=== PATIENT | female | born 1970 | race African-American/Black ===

== ENCOUNTER 2016-04-27 14:29 | Inpatient (IN) | payer OTHER ==
[2016-04-27 14:37] VITALS: BMI 29.9
[2016-04-27 15:26] LABS: BASOPHIL 0.9 % (0-2.0); EOSINOPHIL 1.6 % (0-4.5); MCHC 32.4 g/dl (32.0-36.0); MEAN CELL VOLUME 86.4 fl (80-96); MEAN PLT VOLUME 8.5 fl (7.5-11.1); NEUTROPHILS 67.3 % (42.8-82.8); PLATELET COUNT 337 K/MM3 (134-434); RDW 13.9 % (11.6-15.6); WHITE BLOOD COUNT 9.3 K/mm3 (4.0-10.0)
[2016-04-27 15:48] LABS: ALBUMIN 3.3 g/dl (3.4-5.0); BILIRUBIN,TOTAL 0.1 mg/dL (0.2-1.0); CALCIUM 8.8 mg/dL (8.5-10.1); TOT PROT 6.4 g/dl (6.4-8.2)
--- NOTE | 2016-04-27 15:59 | PDOC ---
History of Present Illness <Serafin Bucio - Last Filed: 05/02/16 08:58> - General History Source: Patient Exam Limitations: No Limitations - History of Present Illness Travel History: No Initial Comments: 04/27/16 15:54 45-year-old female sent in by her SENIOR MATERIALS SCIENTIST Dr. Grider for admission secondary to heavy vaginal bleeding secondary to fibroids. Patient pending a total hysterectomy tomorrow at 2 PM and had a noted elevated INR on her preop blood work. Case also discussed with framing and hanging Dr. Nuñez who recommends depending on today's labs, to order labs and meds for reversal. Patient currently states mild abdominal cramping with heavy vaginal bleeding with clots. Patient denies headache, dizziness, weakness, nausea, dysuria, or low back. Timing/Duration: reports: constant Quality: reports: mild, cramping Abdominal Pain Onset Location: reports: suprapubic Pain Radiation: reports: no radiation Activities at Onset: reports: none Aggravating Factors: improves with: None Alleviating Factors: improves with: None <Angelique Rodriguez - Last Filed: 05/07/16 11:02> - General Chief Complaint: Vaginal Bleeding Stated Complaint: BLEEDING, WEAK Time Seen by Provider: 04/27/16 14:52 Past History <Serafin Bucio - Last Filed: 05/02/16 08:58> - Past Medical History Anemia: Yes Asthma: No Cancer: No Cardiac Disorders: No CVA: No COPD: No CHF: No Dementia: No Diabetes: No GI Disorders: No Disorders: No HTN: No Hypercholesterolemia: No Liver Disease: No Seizures: No Thyroid Disease: No - Surgical History Abdominal Surgery: No Appendectomy: No Cardiac Surgery: No Cholecystectomy: No Lung Surgery: No Neurologic Surgery: No Orthopedic Surgery: No - Reproductive History Is Patient Now?: No - Immunization History Immunization Up to Date: Yes - Psycho/Social/Smoking Cessation Hx Anxiety: No Suicidal Ideation: No Smoking Status: No Smoking History: Never smoked Number of Cigarettes Smoked Daily: 0 Information on smoking cessation initiated: No Hx Alcohol Use: No Drug/Substance Use Hx: No Substance Use Type: None Hx Substance Use Treatment: No Patient Lives Alone: No Lives with/in: spouse/SO <Angelique Rodriguez - Last Filed: 05/07/16 11:02> - Past Medical History Allergies/Adverse Reactions: Allergies Allergy/AdvReac Type Severity Reaction Status Date / Time No Known Allergies Allergy Verified 04/27/16 14:33 Home Medications: Ambulatory Orders Ferrous Sulfate [Feosol] 325 mg PO TID 04/08/16 Review of Systems - Review of Systems Able to Perform ROS?: Yes Constitutional: No: Symptoms Reported HEENTM: No: Symptoms Reported Respiratory: No: Symptoms reported Cardiac (ROS): No: Symptoms Reported ABD/GI: Yes: Abdominal cramping : Yes: Discharge (vaginal bleeding) Musculoskeletal: No: Symptoms Reported Integumentary: No: Symptoms Reported Neurological: No: Symptoms reported Endocrine: No: Symptoms Reported Hematologic/Lymphatic: No: Symptoms Reported <Angelique Rodriguez - Last Filed: 05/07/16 11:02> *Physical Exam - Vital Signs Last Vital Signs Temp Pulse Resp BP Pulse Ox 98.2 F 96 H 20 129/78 100 04/27/16 14:34 04/27/16 14:34 04/27/16 14:34 04/27/16 14:34 04/27/16 14:34 <Serafin Bucio - Last Filed: 05/02/16 08:58> - Vital Signs Last Vital Signs Temp Pulse Resp BP Pulse Ox 98.2 F 96 H 20 129/78 100 04/27/16 14:34 04/27/16 14:34 04/27/16 14:34 04/27/16 14:34 04/27/16 14:34 - Physical Exam General Appearance: Yes: Nourished, Appropriately Dressed. No: Apparent Distress HEENT: positive: EOMI, MYNOR. negative: Pale Conjunctivae Neck: positive: Supple Respiratory/Chest: positive: Lungs Clear, Normal Breath Sounds. negative: Respiratory Distress, Accessory Muscle Use Cardiovascular: positive: Regular Rhythm, Regular Rate. negative: Murmur Female Pelvic Exam: positive: vaginal bleeding (moderate amount -bright red no clots) Gastrointestinal/Abdominal: positive: Soft, Tenderness (suprapubic mid) Musculoskeletal: negative: CVA Tenderness Extremity: positive: Normal Capillary Refill. negative: Pedal Edema Integumentary: positive: Normal Color, Warm, Moist Neurologic: positive: Motor Strength 5/5 (ambulatory) <Angelique Rodriguez - Last Filed: 05/07/16 11:02> Heart Score/ECG Review - ECG Impressions Comment:: 04/27/16 16:32 Twelve-lead EKG was performed and reviewed by me. There is normal sinus rhythm with a normal rate. Rate of 89 The axis is normal. The intervals are normal. There is normal R wave progression Nonspecific ST wave changes <Serafin Bucio - Last Filed: 05/02/16 08:58> ED Treatment Course - LABORATORY CBC & Chemistry Diagram: 04/30/16 06:25 04/30/16 06:25 - ADDITIONAL ORDERS Additional order review: Laboratory Results 04/27/16 04/27/16 14:53 14:53 Sodium 142 Potassium 4.0 Chloride 106 Carbon Dioxide 28 Anion Gap 8 BUN 12 D Creatinine 1.0 Creat Clearance w eGFR 59.43 Random Glucose 104 D Calcium 8.8 Total Bilirubin 0.1 L AST 17 D ALT 17 Alkaline Phosphatase 50 Total Protein 6.4 Albumin 3.3 L Crossmatch See Detail 04/27/16 14:53 RBC 3.03 L MCV 86.4 MCHC 32.4 RDW 13.9 MPV 8.5 Neutrophils % 67.3 Lymphocytes % 26.0 Monocytes % 4.2 Eosinophils % 1.6 Basophils % 0.9 - RADIOLOGY Radiology Studies Ordered: Category Date Time Status CHEST X-RAY PORTABLE* [RAD] Stat Radiology 04/27/16 14:53 Ordered <Serafin Bucio - Last Filed: 05/02/16 08:58> - LABORATORY CBC & Chemistry Diagram: 04/30/16 06:25 04/30/16 06:25 - ADDITIONAL ORDERS Additional order review: Laboratory Results 04/27/16 04/27/16 04/27/16 14:53 14:53 14:53 WBC 9.3 RBC 3.03 L Hgb 8.5 L D Hct 26.2 L D MCV 86.4 MCHC 32.4 RDW 13.9 Plt Count 337 MPV 8.5 Neutrophils % 67.3 Lymphocytes % 26.0 Monocytes % 4.2 Eosinophils % 1.6 Basophils % 0.9 Sodium 142 Potassium 4.0 Chloride 106 Carbon Dioxide 28 Anion Gap 8 BUN 12 D Creatinine 1.0 Creat Clearance w eGFR 59.43 Random Glucose 104 D Calcium 8.8 Total Bilirubin 0.1 L AST 17 D ALT 17 Alkaline Phosphatase 50 Total Protein 6.4 Albumin 3.3 L Crossmatch See Detail 04/27/16 14:53 RBC 3.03 L MCV 86.4 MCHC 32.4 RDW 13.9 MPV 8.5 Neutrophils % 67.3 Lymphocytes % 26.0 Monocytes % 4.2 Eosinophils % 1.6 Basophils % 0.9 <Angelique Rodriguez - Last Filed: 05/07/16 11:02> Medical Decision Making - Medical Decision Making 05/02/16 08:58 The patient was seen and evaluated in conjunction with BILLY Rodriguez under my direct supervision, ancillary studies were reviewed. I agree with the plan as outlined by BILLY Rodriguez. <Serafin Bucio - Last Filed: 05/02/16 08:58> - Medical Decision Making 04/27/16 16:04 Patient sent in by [employer] for admission and evaluation by framing and hanging secondary to elevated INR and patient is due for a total abdominal history. Tomorrow at 2 PM. Patient history of fibroids but denies any anticoagulation disorders does not take any medication that could cause this. Patient currently stable case discussed with framing and hanging who recommended labs and her labs including PT PTT and fiber 10 level Patient will be placed for admission. [employer] here at bedside. Patient currently comfortable with normal vital signs. 04/27/16 17:40 Chest xray -. awaiting transfusion. Laboratory Tests 04/27/16 04/27/16 04/27/16 14:53 14:53 14:53 WBC 9.3 Hgb 8.5 L D Hct 26.2 L D Neutrophils % 67.3 INR 1.45 H Sodium 142 Potassium 4.0 Chloride 106 Carbon Dioxide 28 Anion Gap 8 BUN 12 D Creatinine 1.0 Total Bilirubin 0.1 L Albumin 3.3 L Serum , Qual Urine Protein Urine Ketones Urine Blood Ur Leukocyte Esterase Urine RBC Blood Type 04/27/16 04/27/16 04/27/16 14:53 15:30 16:54 WBC Hgb Hct Neutrophils % INR 1.46 H Sodium Potassium Chloride Carbon Dioxide Anion Gap BUN Creatinine Total Bilirubin Albumin Serum , Qual Negative Urine Protein 2+ H Urine Ketones Negative Urine Blood 3+ H Ur Leukocyte Esterase 1+ H Urine RBC 2136 Blood Type O POSITIVE Case discussed with Dr. Serafin Raygoza framing and hanging and states to hold on medication until the PTT PT and fibrinogen level is back. 04/27/16 18:46 Call placed by medical claims representative. Laboratory Tests 04/27/16 16:54 PTT (Actin FS) 34.4 Mix INR Baseline 1.13 H PTT Mix w Anti Prot C 35.0 H Fibrinogen 264.0 Factor VII Pending 04/27/16 19:00 Case discussed again with Dr. Raygoza who states to add factor XI factor X, and factor IX to regimen and ordered vitamin K 10 mg subcutaneous. 04/27/16 19:10 Unable to order factor XI the computer stating he needs prior authorization 05/07/16 11:01 <Angelique Rodriguez - Last Filed: 05/07/16 11:02> *DC/Admit/Observation/Transfer <Serafin Bucio - Last Filed: 05/02/16 08:58> - Discharge Dispostion Admit: Yes <Angelique Rodriguez - Last Filed: 05/07/16 11:02> Diagnosis at time of Disposition: Vaginal bleeding, Elevated INR, Blood transfusion during current hospitalization Fibroid Qualifiers: Uterine leiomyoma location: intramural Qualified Code(s): D25.1 - Intramural leiomyoma of uterus - Discharge Dispostion Disposition: HOME Condition at time of disposition: Good
[2016-04-27 16:38] LABS: INR 1.45 (0.82-1.09); PROTHROMBIN TIME (PATIENT) 16.1 SEC (9.98-11.88)
[2016-04-27 16:40] LABS: URINE APPEARANCE SLCLOUDY; URINE BILIRUBIN NEGATIVE (NEGATIVE); URINE COLOR YELLOW; URINE GLUCOSE (UA) NEGATIVE (NEGATIVE); URINE KETONE NEGATIVE (NEGATIVE); URINE NITRITE NEGATIVE (NEGATIVE); URINE UROBILINOGEN NEGATIVE E.U./dl (0.2-1.0)
[2016-04-27 16:41] LABS: URINE BLOOD 3+ (NEGATIVE); URINE LEUK ESTERASE 1+ (NEGATIVE); URINE PROTEIN 2+ (NEGATIVE)
[2016-04-27 16:44] LABS: CALCIUM OXALATE CRYSTALS FEW /hpf (NONE SEEN); URINE BACTERIA FEW /hpf (NONE SEEN); URINE MUCUS FEW; URINE RBC 2136 /hpf (0-3); URINE WBC 17 /hpf (3-5)
[2016-04-27 17:47] LABS: INR 1.46 (0.82-1.09); PROTHROMBIN TIME (PATIENT) 16.2 SEC (9.98-11.88)
[2016-04-27 17:49] LABS: ACTIVATED PTT 34.4 SECONDS (26.9-34.4)
[2016-04-27 18:24] LABS: MIXED PT 12.5 SECONDS (9.4-11.6)
[2016-04-27 18:25] LABS: INR (MIXED) 1.13 (0.80-1.00)
[2016-04-27] MEDS ORDERED: PHYTONADIONE 10 MG/1 ML AMP SQ ONE (19:09)
--- NOTE | 2016-04-27 20:35 | CONSULT ---
Consult Consult Specialty:: Hematology-Oncology Referred by:: Dr. Grider Reason for Consultation:: Elevated INR. Scheduled for hysterectomy - History of Present Illness Chief Complaint: Fibroid uterus, menorrhagia. Had menses beginning 04/24, passing clots and falling Hct requiring transfusion therapy and ER visit. Scheduled for hysterectomy 04/28. - History Source History Provided By: Patient Limitations to Obtaining History: No Limitations - Past Medical History Reproductive: Yes: Other ...LMP: 04/26/15 ...: No ...: 3 ...Para: 2 (1 miscarriage; 2 deliveries via ) - Past Surgical History Additional Surgical History: Tooth extractions in past- No bleeding;. C- section x 2 - No bleeding - Alcohol/Substance Use Hx Alcohol Use: No (social) History of Substance Use: reports: None - Smoking History Smoking history: Never smoked Aproximately how many cigarettes per day: 0 - Social History ADL: Independent Occupation: works in [employer] of : [employer] Home Medications - Allergies Allergies/Adverse Reactions: Allergies Allergy/AdvReac Type Severity Reaction Status Date / Time No Known Allergies Allergy Verified 04/27/16 14:33 - Home Medications Home Medications: Ambulatory Orders Cyanocobalamin [Vitamin B12 -] 1,000 mcg PO DAILY 04/08/16 Ferrous Sulfate [Feosol] 325 mg PO TID 04/08/16 Folic Acid 1 mg PO DAILY 04/08/16 Family Disease History - Family Disease History Family History: Unable to Obtain (adopted) Review of Systems - Review of Systems Constitutional: reports: Weakness Eyes: denies: Blind Spots, Blurred Vision, Double Vision HENT: denies: Epistaxis, Hearing Loss, Throat Pain Neck: denies: Decreased ROM, Stiffness Cardiovascular: denies: Chest Pain Respiratory: denies: Exercise Intolerance, SOB, SOB on Exertion Gastrointestinal: denies: Abdominal Pain, Nausea, Vomiting, Vomiting Blood Genitourinary: reports: Menses, Other (fibroids- passing clots -1 miscarriage) Breasts: reports: No Symptoms Reported, Other (had mammography > 1 year earlier) Musculoskeletal: reports: No Symptoms Integumentary: reports: No Symptoms Neurological: reports: No Symptoms Endocrine: reports: No Symptoms Hematology/Lymphatic: reports: Excessive Bleeding Psychiatric: reports: No Symptoms Physical Exam Vital Signs: Vital Signs Temperature 98.2 F 04/27/16 14:34 Pulse Rate 107 H 04/27/16 19:36 Respiratory Rate 16 04/27/16 19:36 Blood Pressure 147/79 04/27/16 19:36 O2 Sat by Pulse Oximetry (%) 99 04/27/16 19:36 Constitutional: Yes: Mild Distress Eyes: Yes: PERRL. No: Diplopia, Ptosis, Sclera Icterus HENT: No: Epistaxis, Hoarseness, Tonsillar Exudate Neck: No: Lymphadenopathy, Tenderness, Thyromegaly Cardiovascular: Yes: Regular Rate and Rhythm Respiratory: Yes: WNL, Regular Gastrointestinal: Yes: Normal Bowel Sounds, Soft. No: Hepatomegaly, Splenomegaly Renal/: No: CVA Tenderness - Left, CVA Tenderness - Right Breast(s): Yes: WNL, Left, Right Musculoskeletal: Yes: WNL Extremities: Yes: WNL Edema: No Integumentary: Yes: WNL Neurological: Yes: WNL ...Motor Strength: WNL Psychiatric: Yes: WNL Problem List - Problems (1) Elevated INR Assessment/Plan: INR-1.45, PTT-34 Mixing PT with correction - against a circulating anticoagulant Mixing PTT- no correction --favors circulating anticoagulant Factor studies pending Will order lupus anticoagulant Had x2 and tooth extractions without prior bleeding diathesis. Family hx- not helpful as patient is adopted. Spoke with Dr. Grider. Etiology of elevated INR not apparent. Dr. Grider feels surgery is necessary, will empirically give Vitamin K. Will reassess in A. M. Code(s): R79.1 - ABNORMAL COAGULATION PROFILE
[2016-04-27] MEDS ORDERED: PHYTONADIONE 10 MG/1 ML AMP ONE (20:46)
[2016-04-28 07:19] LABS: INR 1.36 (0.82-1.09)
[2016-04-28 07:22] LABS: ACTIVATED PTT 34.7 SECONDS (26.9-34.4)
[2016-04-28 07:39] LABS: ALK PHOS 46 U/L (45-117); ANION GAP 5 (8-16); BILIRUBIN,TOTAL 0.2 mg/dL (0.2-1.0); CALCIUM 8.2 mg/dL (8.5-10.1); CO2 29 mmol/L (21-32); CREATININE 0.9 mg/dL (0.55-1.02); GLUCOSE,RANDOM 91 mg/dL (74-106); SGOT/AST 15 U/L (15-37); SGPT/ALT 15 U/L (12-78); TOT PROT 5.9 g/dl (6.4-8.2)
[2016-04-28 11:08] LABS: BASOPHIL 0.7 % (0-2.0); MCH 28.4 pg (25.7-33.7); MCHC 32.1 g/dl (32.0-36.0); MEAN CELL VOLUME 88.6 fl (80-96); MEAN PLT VOLUME 9.3 fl (7.5-11.1); NEUTROPHILS 62.1 % (42.8-82.8); PLATELET COUNT 295 K/MM3 (134-434); RDW 13.6 % (11.6-15.6); WHITE BLOOD COUNT 6.1 K/mm3 (4.0-10.0)
--- NOTE | 2016-04-28 11:57 | EKG ---
Test Reason : Blood Pressure : / mmHG Vent. Rate : 089 BPM Atrial Rate : 089 BPM P-R Int : 146 ms QRS Dur : 082 ms QT Int : 376 ms P-R-T Axes : 061 021 014 degrees QTc Int : 457 ms NORMAL SINUS RHYTHM NONSPECIFIC T WAVE ABNORMALITY ABNORMAL ECG WHEN COMPARED WITH ECG OF 30-MAR-2016 10:58, NO SIGNIFICANT CHANGE WAS FOUND Confirmed by KRISTI WELLS, SAMMI ([id number]) on 04/28/2016 11:57:21 AM Referred By: Confirmed By:SAMMI BERRY MD
[2016-04-28] MEDS ORDERED: ceFAZolin SODIUM 1 GM VIAL IVPB ONE (13:27)
[2016-04-28] MEDS ORDERED: DEXAMETHASONE SOD PHOSPHATE 4 MG/1 ML VIAL IVPUSH ONE ×2 (13:36→17:03)
[2016-04-28] MEDS ORDERED: ONDANSETRON 4 MG/2 ML VIAL IVPUSH PRN ×5 (13:36→17:03)
[2016-04-28] MEDS ORDERED: PROMETHAZINE HCL 25 MG/1 ML VIAL IVPB PRN ×3 (13:36→17:03)
[2016-04-28] MEDS ORDERED: LACTATED RINGERS SOLUTION 1,000 ML IV SCH ×3 (13:45→16:15)
[2016-04-28] MEDS ORDERED: HYDROmorphone *PCA* 10MG/50ML DISP.SYRIN PCA SCH ×3 (13:45→17:03)
[2016-04-28] MEDS ORDERED: DEXAMETHASONE SOD PHOSPHATE 4 MG/1 ML VIAL IVPUSH PRN ×2 (15:54→17:03)
[2016-04-28] MEDS ORDERED: PROMETHAZINE HCL 25 MG/1 ML VIAL IVPUSH PRN ×2 (15:54→17:03)
[2016-04-28] MEDS ORDERED: PROMETHAZINE HCL 25 MG/1 ML VIAL ONE (16:23)
[2016-04-28] MEDS ORDERED: PHYTONADIONE 10 MG/1 ML AMP SQ ONE (16:47)
[2016-04-28 18:24] LABS: BASOPHIL 0.2 % (0-2.0); MCH 28.1 pg (25.7-33.7); MEAN CELL VOLUME 87.6 fl (80-96); MEAN PLT VOLUME 9.2 fl (7.5-11.1); NEUTROPHILS 93.7 % (42.8-82.8); PLATELET COUNT 306 K/MM3 (134-434); RDW 13.6 % (11.6-15.6); WHITE BLOOD COUNT 16.9 K/mm3 (4.0-10.0)
[2016-04-28] MEDS: LACTATED RINGERS SOLUTION 1,000 ML IV SCH (18:30)
--- NOTE | 2016-04-28 18:51 | PN ---
Progress Note (short form) - Note Progress Note: PAtient seen and examined in the recovery room Vitals stable. Arousabe. received 1 unit PRBCs in the OR Last Vital Signs Temp Pulse Resp BP Pulse Ox 98.9 F 92 H 16 125/70 100 04/28/16 15:49 04/28/16 17:50 04/28/16 17:50 04/28/16 17:50 04/28/16 17:50 HEENT: JADEN, EOM Intact Oropharynx: No thrush, No mucositis Cor: RSR, No murmurs, No gallops Lungs: Clear to P&A Abd: Soft, Normal bowel sounds, No organomegaly Ext:No significant edema Skin: No rashes, Integument intact Abnormal Lab Results 04/27/16 04/28/16 04/28/16 14:53 06:30 06:30 RBC 3.25 L Hgb 9.2 L Hct 28.7 L INR 1.36 H PTT (Actin FS) 34.7 H Anion Gap Calcium Total Protein Albumin Crossmatch See Detail Crossmatch IS Only See Detail 04/28/16 06:30 RBC Hgb Hct INR PTT (Actin FS) Anion Gap 5 L Calcium 8.2 L Total Protein 5.9 L Albumin 3.0 L Crossmatch Crossmatch IS Only Current Medications Dexamethasone Sodium Phosphate (Decadron Injection -) 4 mg IVPUSH ONCE PRN PRN Reason: NAUSEA AND/OR VOMITING Diphenhydramine HCl (Benadryl Injection -) 12.5 mg IVPUSH ONCE PRN PRN Reason: FOR ITCHING Fentanyl (Sublimaze Injection -) 50 mcg IVPUSH [id number] PRN PRN Reason: PAIN Stop: 05/01/16 13:37 Fentanyl (Sublimaze Injection -) 50 mcg IVPUSH [id number] PRN PRN Reason: PAIN Stop: 05/01/16 15:55 Hydromorphone HCl (Dilaudid Esthetician Facialist -) 0 mg HOUSEKEEPER AND LAUNDRY ASSISTANT HOUSEKEEPER AND LAUNDRY ASSISTANT KATHERINE PRN Reason: Protocol Stop: 05/05/16 15:54 Last Admin: 04/28/16 16:15 Dose: 10 mg Lactated Ringer's (Lactated Ringers Solution) 1,000 mls @ 125 mls/hr IV ASDIR KATHERINE Ondansetron HCl (Zofran Injection) 4 mg IVPUSH Q4H PRN PRN Reason: NAUSEA AND/OR VOMITING Stop: 04/29/16 01:37 Ondansetron HCl (Zofran Injection) 4 mg IVPUSH Q6H PRN PRN Reason: NAUSEA AND/OR VOMITING Stop: 04/28/16 21:55 Promethazine HCl (Phenergan Injection -) 12.5 mg IVPUSH Q6H PRN PRN Reason: NAUSEA Stop: 04/28/16 21:55 Promethazine HCl (Phenergan Injection -) 12.5 mg IVPB Q6H PRN PRN Reason: NAUSEA AND/OR VOMITING Last Admin: 04/28/16 16:45 Dose: 12.5 mg A/P 45 y/o patient s/p hysterectomy for menorrhagia Mildly elevated INR- 1.36 today s/p vit. K 10mg PTT-34.7 platelets/fibrinogen --nl discussed with Dr. Grider this morning s/p 1 unit PRBCs Monitor closely post op. repeat studies in am
[2016-04-28] MEDS ORDERED: DEXAMETHASONE SOD PHOSPHATE 4 MG/1 ML VIAL ONE (19:36)
[2016-04-28] MEDS: CEFAZOLIN 1 GM/D5W 50 ML IVPB SCH (22:09)
[2016-04-29] MEDS: LACTATED RINGERS SOLUTION 1,000 ML IV SCH ×2 (02:00→11:45)
[2016-04-29] MEDS: CEFAZOLIN 1 GM/D5W 50 ML IVPB SCH ×2 (05:49→13:06)
--- NOTE | 2016-04-29 06:35 | OP ---
DATE OF OPERATION: 04/28/2016 PREOPERATIVE DIAGNOSES: Fibroid uterus and uterine hemorrhoids. POSTOPERATIVE DIAGNOSES: Fibroid uterus and uterine hemorrhoids. SURGERY: Supracervical hysterectomy because patient requested to preserve her ovaries and cervix. The patient was admitted through the emergency room because she had uterine hemorrhoids and dizziness and fainting, and before surgery 1 unit of packed cells before surgery and 1 packed cell during the surgery were transfused. Consultation by Hematology was done, and patient was sent to operating room. DESCRIPTION OF PROCEDURE: While patient was prepped under general anesthesia, Pfannenstiel incision abdominal cavity was opened and because she had 2 previous c-sections all the adhesions layer by layer meticulously were lysed. Uterus was pulled out and hysterectomy was done in that manner, but first both round ligaments were ligated with the suture ligature and then the whole round ligament and uteroovarian ligaments on both sides, left and right sides, were and both ovaries were healthy and preserved. At this time, step by step both uterine arteries were ligated with the help of suture ligature and No. 0 Vicryls and then uterus completely was from the cervix and cervix was preserved and uterus was removed and sent to Pathology. Because patient has coagulation problem, there was some oozing and it was controlled completely. Bleeding was controlled and dry and after irrigation and evaluation of the element of the pelvis and abdomen peritoneum and fascia were closed with 0 Vicryl and skin was closed with V-Loc No. 3. Estimated blood loss was 250 mL. Patient tolerated the procedure, was sent to recovery room in good condition. Thad [id number]
[2016-04-29 08:19] LABS: INR 1.43 (0.82-1.09); PROTHROMBIN TIME (PATIENT) 15.8 SEC (9.98-11.88)
[2016-04-29 08:21] LABS: ACTIVATED PTT 31.7 SECONDS (26.9-34.4)
[2016-04-29] MEDS ORDERED: PCA PUMP KEY 1 EACH EACH ONE (08:51)
[2016-04-29 10:17] LABS: BASOPHIL 0.3 % (0-2.0); MCH 28.9 pg (25.7-33.7); MCHC 32.8 g/dl (32.0-36.0); MEAN CELL VOLUME 88.1 fl (80-96); MEAN PLT VOLUME 8.4 fl (7.5-11.1); NEUTROPHILS 87.9 % (42.8-82.8); PLATELET COUNT 317 K/MM3 (134-434); RDW 13.9 % (11.6-15.6); WHITE BLOOD COUNT 14.3 K/mm3 (4.0-10.0)
[2016-04-29 10:55] LABS: ALBUMIN 2.8 g/dl (3.4-5.0); CALCIUM 8.3 mg/dL (8.5-10.1); CREATININE 1.1 mg/dL (0.55-1.02)
[2016-04-29 11:01] LABS: BILIRUBIN,TOTAL 0.3 mg/dL (0.2-1.0); TOT PROT 5.6 g/dl (6.4-8.2)
[2016-04-29] MEDS ORDERED: BISACODYL 10 MG SUPP.RECT RC ONE ×2 (13:07→15:27)
--- NOTE | 2016-04-29 13:31 | PN ---
Progress Note (short form) - Note Progress Note: Anesthesia/pain Pt seen and examined S:Alert and awake, comfortable O: Vital Signs Temperature 97.9 F 04/29/16 09:22 Pulse Rate 90 04/29/16 09:22 Respiratory Rate 20 04/29/16 09:22 Blood Pressure 130/77 04/29/16 09:22 O2 Sat by Pulse Oximetry (%) 100 04/28/16 19:35 CBC, BMP 04/29/16 10:10 04/29/16 10:10 A/P: Blood transfusion during current hospitalization (Acute) Elevated INR (Acute) Fibroid (Acute) Vaginal bleeding (Acute) s/p AUGUSTO PRESS HELPER d/manohar Doing well post op Continue current care Tommy Cole MD
[2016-04-29] MEDS ORDERED: PHYTONADIONE 10 MG/1 ML AMP SQ ONE (16:43)
--- NOTE | 2016-04-29 18:30 | PN ---
Progress Note (short form) - Note Progress Note: PAtient seen and examined in the recovery room Vitals stable. Arousabe. received 1 unit PRBCs in the OR Last Vital Signs Temp Pulse Resp BP Pulse Ox 98.9 F 102 H 20 122/57 100 04/29/16 14:00 04/29/16 14:00 04/29/16 14:00 04/29/16 14:00 04/28/16 19:35 HEENT: JADEN, EOM Intact Oropharynx: No thrush, No mucositis Cor: RSR, No murmurs, No gallops Lungs: Clear to P&A Abd: Soft, Normal bowel sounds, No organomegaly Ext:No significant edema Skin: No rashes, Integument intact Abnormal Lab Results 04/27/16 04/28/16 04/29/16 14:53 17:30 07:30 WBC 16.9 H D RBC 3.36 L Hgb 9.4 L Hct 29.4 L Neutrophils % 93.7 H D Lymphocytes % 5.0 L D Monocytes % 1.1 L D INR Chloride 110 H Anion Gap Creatinine Random Glucose Calcium Alkaline Phosphatase Total Protein Albumin Crossmatch See Detail Crossmatch IS Only See Detail 04/29/16 04/29/16 04/29/16 07:30 10:10 10:10 WBC 14.3 H RBC 3.16 L Hgb 9.1 L Hct 27.8 L Neutrophils % 87.9 H Lymphocytes % 7.1 L D Monocytes % INR 1.43 H Chloride 110 H Anion Gap 7 L Creatinine 1.1 H D Random Glucose 114 H D Calcium 8.3 L Alkaline Phosphatase 39 L Total Protein 5.6 L Albumin 2.8 L Crossmatch Crossmatch IS Only Current Medications Dexamethasone Sodium Phosphate (Decadron Injection -) 4 mg IVPUSH ONCE PRN PRN Reason: NAUSEA AND/OR VOMITING Last Admin: 04/28/16 19:35 Dose: 4 mg Diphenhydramine HCl (Benadryl Injection -) 12.5 mg IVPUSH ONCE PRN PRN Reason: FOR ITCHING Last Admin: 04/28/16 19:32 Dose: 12.5 mg Fentanyl (Sublimaze Injection -) 50 mcg IVPUSH [id number] PRN PRN Reason: PAIN Stop: 05/01/16 13:37 Fentanyl (Sublimaze Injection -) 50 mcg IVPUSH [id number] PRN PRN Reason: PAIN Stop: 05/01/16 15:55 Lactated Ringer's (Lactated Ringers Solution) 1,000 mls @ 125 mls/hr IV ASDIR KATHERINE Last Admin: 04/29/16 11:45 Dose: 125 mls/hr Ibuprofen (Caldolor Injection -) 600 mg IVPB Q6H PRN PRN Reason: FEVER Last Admin: 04/29/16 08:04 Dose: 600 mg Promethazine HCl (Phenergan Injection -) 12.5 mg IVPB Q6H PRN PRN Reason: NAUSEA AND/OR VOMITING Last Admin: 04/28/16 16:45 Dose: 12.5 mg A/P 45 y/o patient s/p hysterectomy for menorrhagia hgb --9.1 Mildly elevated INR- 1.43 s/p vit. K 10mg PTT-31 platelets/fibrinogen --nl will give vit. K 5mg today f/u in the office to f/u on pending tests
[2016-04-29] MEDS ORDERED: IBUPROFEN 600 MG TABLET (FP) PO PRN (22:35)
[2016-04-30 07:36] VITALS: BP 125/84; PULSE 92; TEMP 97.8
[2016-04-30 08:05] LABS: INR 1.33 (0.82-1.09); PROTHROMBIN TIME (PATIENT) 14.7 SEC (9.98-11.88)
[2016-04-30 08:07] LABS: ACTIVATED PTT 31.8 SECONDS (26.9-34.4)
[2016-04-30 08:10] LABS: BASOPHIL 0.4 % (0-2.0); EOSINOPHIL 0.8 % (0-4.5); MCH 29.1 pg (25.7-33.7); MCHC 33.2 g/dl (32.0-36.0); MEAN CELL VOLUME 87.7 fl (80-96); MEAN PLT VOLUME 8.5 fl (7.5-11.1); NEUTROPHILS 71.1 % (42.8-82.8); PLATELET COUNT 335 K/MM3 (134-434); RDW 13.9 % (11.6-15.6); WHITE BLOOD COUNT 9.6 K/mm3 (4.0-10.0)
[2016-04-30 08:15] LABS: ALBUMIN 2.8 g/dl (3.4-5.0); ANION GAP 5 (8-16); BILIRUBIN,TOTAL 0.1 mg/dL (0.2-1.0); CO2 27 mmol/L (21-32); CREATININE 0.8 mg/dL (0.55-1.02); GLUCOSE,RANDOM 92 mg/dL (74-106); SGOT/AST 19 U/L (15-37); SGPT/ALT 14 U/L (12-78); TOT PROT 5.5 g/dl (6.4-8.2)
[2016-04-30 08:16] LABS: ALK PHOS 42 U/L (45-117)
--- NOTE | 2016-04-30 08:34 | PN ---
Progress Note (short form) - Note Progress Note: Patient seen and examined Feels improved. Complains of "gas" Received packed cells and Vitamin K with some correction of PTT. 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 This could be isolated fFactor deficiency or occult liver disese. Last Vital Signs Temp Pulse Resp BP Pulse Ox 97.8 F 92 H 20 125/84 100 04/30/16 07:34 04/30/16 07:34 04/30/16 07:34 04/30/16 07:34 04/28/16 19:35 HEENT: JADEN, EOM Intact Oropharynx: No thrush, No mucositis Cor: RSR, No murmurs, No gallops Lungs: Clear to P&A Abd: Soft, Normal bowel sounds, No organomegaly Ext:No significant edema Skin: No rashes, Integument intact CBC, BMP 04/30/16 06:25 04/30/16 06:25 Todays labs pending Impression: S/P surgery for menorrhagia secondary to fibroids Prolonged PT ?? etiology S/P transfusion of packed cells. Plan: Await todays CBC Office follow up Check urine C & S Fe++ therapy upon discharge. Problem List - Problems (1) Elevated INR Code(s): R79.1 - ABNORMAL COAGULATION PROFILE
--- NOTE | 2016-04-30 13:17 | PATH ---
Surgical Pathology Report Patient Name: SATHISH HARTMAN [facility]. Rec. #: [id number] /Age/Gender: 1970 (Age: 45) / F Account: [id number] Location: [facility] OBS/HOTBED OPERATOR Taken: 04/28/2016 Received: 04/29/2016 Reported: 04/30/2016 Physicians: Pop Grider M.D. Specimen(s) Received UTERUS Clinical History Menorrhagia, fibroids, anemia Final Diagnosis UTERUS, SUPRACERVICAL HYSTERECTOMY: CERVICAL STUMP: CHRONIC CERVICITIS. ENDOMETRIUM: DYSSYNCHRONOUS. MYOMETRIUM: LEIOMYOMATA WITH FOCAL HYDROPIC CHANGES (LARGEST 6.5 CM). UTERINE SEROSA: WITHOUT SIGNIFICANT PATHOLOGIC CHANGES. Electronically Signed Ron Tran M.D. Gross Description Received in formalin, labeled "uterus" is a 390 g supracervically amputated uterus with no attached adnexa. The specimen measures 9 cm from superior to inferior, 8.3 cm from left to right and 7.8 cm from anterior to posterior. The serosa is pink-greenfield and smooth. The endometrial cavity measures 8 cm in length and 6 cm from cornu to cornu. There is a 6.5 cm in greatest dimension bulging submucosal nodule present. The remaining endometrium is greenfield-red and averages 0.1 cm in thickness. The cut surface of the submucosal nodule is greenfield, firm to rubbery and displays whorled architecture. There are multiple small foci of possible necrosis and hemorrhage. The myometrium is greenfield-pink with focal intramural nodules, measuring up to 2 cm in greatest dimension. The nodules are greenfield, firm to rubbery and display whorled architecture. No areas of hemorrhage or necrosis are identified. The remaining myometrium is greenfield-pink and measures up to 3 cm in thickness. Chandelier Maker sections are submitted in 10 cassettes as follows: 1-cervical stump margin of resection; 1-3-oaghhxhbgsdjjo; 7-9-wqbwgrefym nodule; 10-intramural nodules. 04/29/201604/29/2016
[2016-05-02 16:08] LABS: INTERPRET Comment: (.)
== END 2016-04-30 15:59 | disposition home or self-care (01) | DRG 743 ==
LOC: JER 14:29 → JERBED 17:17 → J3W 23:51 → OBSVTOIN 04-28 16:20
PROVIDERS: ADMIT Obstetrics & Gynecology; ATTEND Obstetrics & Gynecology
PROC: 30233N1 Transfusion of Nonautologous Red Blood Cells into Peripheral Vein, Percutaneous Approach (ICD-10-PCS; 2016-04-27)
PROC: 0UT90ZZ Resection of Uterus, Open Approach (ICD-10-PCS; principal; 2016-04-28 13:00)
DX: D25.1 Intramural leiomyoma of uterus (principal); N92.0 Excessive and frequent menstruation with regular cycle; R79.1 Abnormal coagulation profile; D64.9 Anemia, unspecified
CPT/HCPCS: 36415; 36430; 71010-TC; 80051; 80053; 81003; 81015; 84703; 85025; 85230; 85240; 85384; 85610; 85613; 85730; 85732; 86850; 86900; 86901; 86922; 87086; 88307-TC; 93005; 93010; 94760; 99285-25; G0378; P9038; P9058